=== PATIENT | male | born 1950 | race Caucasian/White ===

== ENCOUNTER 2018-07-26 12:11 | Inpatient (IN) | payer MEDICARE, OTHER ==
[2018-07-26 13:47] LABS: ADD MAN DIFF? NO
[2018-07-26 13:56] LABS: BASOPHIL # 0.1 10^3/ul (0.0-0.1); BASOPHILS % 0.6 % (0.0-2.0); EOSINOPHILS # 0.2 10^3/ul (0.0-0.5); EOSINOPHILS % 1.8 % (0.0-7.0); HEMATOCRIT 46.8 % (42.0-52.0); HEMOGLOBIN 15.2 g/dl (14.0-18.0); LYMPHOCYTES # 2.5 10^3/ul (0.8-2.9); LYMPHOCYTES % 20.6 % (15.0-51.0); MEAN CORPUSCULAR HEMOGLOBIN 28.8 pg (29.0-33.0); MEAN CORPUSCULAR HGB CONC 32.5 g/dl (32.0-37.0); MEAN CORPUSCULAR VOLUME 88.8 fl (82.0-101.0); MEAN PLATELET VOLUME 8.9 fl (7.4-10.4); MONOCYTE # 0.9 10^3/ul (0.3-0.9); MONOCYTES % 7.7 % (0.0-11.0); NEUTROPHIL # 8.4 10^3/ul (1.6-7.5); NEUTROPHILS % 68.2 % (39.0-77.0); PLATELET COUNT 330 10^3/UL (140-415); RED BLOOD COUNT 5.27 10^6/ul (4.70-6.10); RED CELL DISTRIBUTION WIDTH 13.5 % (11.5-14.5)
[2018-07-26 13:56] LABS: WHITE BLOOD COUNT 12.3 10^3/ul (4.8-10.8)
[2018-07-26] MEDS ORDERED: ACETAMINOPHEN 325 MG TAB PO (14:00)
[2018-07-26] MEDS ORDERED: ONDANSETRON 4 MG INJ IV (14:00)
[2018-07-26 14:12] LABS: ANION GAP 6 (5-13); BLOOD UREA NITROGEN 15 mg/dl (7-20); CALCIUM 9.4 mg/dl (8.4-10.2); CARBON DIOXIDE 34 mmol/L (21-31); CHLORIDE 97 mmol/L (97-110); CREATININE 0.71 mg/dl (0.61-1.24); Estimated GFR > 60 mL/min (>60); GLUCOSE 196 mg/dl (70-220); POTASSIUM 4.3 mmol/L (3.5-5.1); SODIUM 137 mmol/L (135-144)
[2018-07-26] MEDS: PIPER-TAZO 3.375 GM IV (PMX) 100 ML IVPB (14:17)
[2018-07-26 14:24] LABS: TROPONIN-I < 0.012 ng/ml (0.000-0.120)
[2018-07-26] MEDS: VANCOMYCIN 1 GM (PMX) 250 ML IVPB (14:39)
[2018-07-26] MEDS ORDERED: ACETAMINOPHEN 500 MG TAB PO (20:00)
[2018-07-26] MEDS: ACCU-CHEK XX (20:00)
[2018-07-26] MEDS: NICOTINE (14 MG/24 HR) PATCH TRANSDERM (20:30)
[2018-07-26] MEDS: ALBUTEROL HFA 8 GM INHALER INH (21:00)
[2018-07-26] MEDS ORDERED: GLUCOSE GEL 15 GRAM TUBE BUCCAL (21:30)
[2018-07-26] MEDS ORDERED: GLUCOSE GEL 15 GRAM TUBE PO ×2 (21:30)
[2018-07-26] MEDS ORDERED: DEXTROSE 50% 50 ML SYRINGE IV ×2 (21:30)
[2018-07-26] MEDS ORDERED: GLUCAGON 1 MG INJ IM (21:30)
[2018-07-26] MEDS: INSULIN ASPART [NOVOLOG] 3 ML PEN SC (22:03)
[2018-07-26] MEDS: BUMETANIDE 1 MG TAB PO (22:04)
[2018-07-26] MEDS: SPIRONOLACTONE 50 MG TAB PO (22:04)
[2018-07-26] MEDS: MONTELUKAST 10 MG TAB GTB (22:06)
[2018-07-26] MEDS: AMITRIPTYLINE 10 MG TAB PO (22:07)
[2018-07-26] MEDS: DOCUSATE SODIUM 250 MG CAP PO (22:07)
[2018-07-26] MEDS: ATORVASTATIN 40 MG TAB PO (22:07)
[2018-07-26] MEDS: DIPHENHYDRAMINE 25 MG CAP PO (22:08)
[2018-07-27] MEDS: PIPER-TAZO 3.375 GM IV (PMX) 100 ML IVPB ×4 (00:36→21:44)
[2018-07-27] MEDS: ALBUTEROL HFA 8 GM INHALER INH ×5 (01:00→17:12)
[2018-07-27] MEDS: INSULIN GLARGINE [LANTus] (100 UNITS/ML) SYG SC (01:10)
[2018-07-27] MEDS: Insulin NOVOLOG SS MODERATE Algorithm(NPO/TPN/ENTERAL FEEDS) SC ×4 (01:16→19:48)
[2018-07-27 01:25] LABS: LACTIC ACID 1.1 mmol/L (0.5-2.0)
[2018-07-27] MEDS ORDERED: INSULIN ASPART [NOVOLOG] 3 ML PEN SC ×3 (01:30→08:00)
[2018-07-27] MEDS ORDERED: ACCU-CHEK XX (02:00)
[2018-07-27 03:49] LABS: LACTIC ACID 1.3 mmol/L (0.5-2.0)
[2018-07-27] MEDS: ACCU-CHEK XX ×4 (06:00→17:11)
[2018-07-27] MEDS ORDERED: PIPER-TAZO 3.375 GM IV (PMX) 100 ML IVPB (06:00)
[2018-07-27 07:13] LABS: LACTIC ACID 1.2 mmol/L (0.5-2.0)
[2018-07-27] MEDS: DOCUSATE SODIUM 250 MG CAP PO ×2 (08:39→21:43)
[2018-07-27] MEDS: TIOTROPIUM 18 MCG CAPSULE INHA DEV INH (08:39)
[2018-07-27] MEDS: AMLODIPINE 10 MG TAB PO (08:42)
[2018-07-27] MEDS: BUPROPION (XL) 150 MG TAB PO (08:42)
[2018-07-27] MEDS: ASPIRIN (EC) 81 MG TAB PO (08:43)
[2018-07-27] MEDS: PREGABALIN 75 MG CAP PO (08:43)
[2018-07-27] MEDS: LINAGLIPTIN 5 MG TABLET PO ×2 (08:43→17:10)
[2018-07-27] MEDS: GLIMEPIRIDE 2 MG TAB GTB (08:43)
[2018-07-27] MEDS: SPIRONOLACTONE 50 MG TAB PO (08:44)
[2018-07-27] MEDS: BENAZEPRIL 20 MG TAB PO (08:44)
[2018-07-27] MEDS: metFORMIN 500 MG TAB PO ×2 (08:44→17:09)
[2018-07-27] MEDS: VANCOMYCIN 1 GM (PMX) 250 ML IVPB (08:46)
[2018-07-27] MEDS: NICOTINE (14 MG/24 HR) PATCH TRANSDERM (08:49)
[2018-07-27] MEDS ORDERED: SPECIAL NON-STANDARD MEDICATION PO (09:00)
[2018-07-27] MEDS: FISH OIL 1,000 MG CAP PO ×2 (17:10→21:43)
[2018-07-27] MEDS: MONTELUKAST 10 MG TAB GTB (21:43)
[2018-07-27] MEDS: ATORVASTATIN 40 MG TAB PO (21:43)
[2018-07-27] MEDS: AMITRIPTYLINE 10 MG TAB PO (21:43)
[2018-07-28] MEDS: ALBUTEROL HFA 8 GM INHALER INH ×4 (01:00→21:00)
[2018-07-28] MEDS: PIPER-TAZO 3.375 GM IV (PMX) 100 ML IVPB ×3 (06:36→21:19)
[2018-07-28 06:44] LABS: BLOOD UREA NITROGEN 21 mg/dl (7-20)
[2018-07-28] MEDS: GLIMEPIRIDE 2 MG TAB GTB (06:44)
[2018-07-28] MEDS: DOCUSATE SODIUM 250 MG CAP PO ×2 (08:33→20:08)
[2018-07-28] MEDS: ASPIRIN (EC) 81 MG TAB PO (08:33)
[2018-07-28] MEDS: BUPROPION (XL) 150 MG TAB PO (08:33)
[2018-07-28] MEDS: AMLODIPINE 10 MG TAB PO (08:33)
[2018-07-28] MEDS: FISH OIL 1,000 MG CAP PO ×2 (08:33→20:08)
[2018-07-28] MEDS: LINAGLIPTIN 5 MG TABLET PO ×2 (08:34→17:19)
[2018-07-28] MEDS: metFORMIN 500 MG TAB PO ×2 (08:34→17:19)
[2018-07-28] MEDS: BENAZEPRIL 20 MG TAB PO (08:34)
[2018-07-28] MEDS: PREGABALIN 75 MG CAP PO (08:35)
[2018-07-28] MEDS: SPIRONOLACTONE 50 MG TAB PO (08:35)
[2018-07-28] MEDS: TIOTROPIUM 18 MCG CAPSULE INHA DEV INH (08:36)
[2018-07-28] MEDS: NICOTINE (14 MG/24 HR) PATCH TRANSDERM (08:40)
[2018-07-28] MEDS: VANCOMYCIN 1 GM (PMX) 250 ML IVPB (09:14)
[2018-07-28] MEDS: INSULIN ASPART [NOVOLOG] 3 ML PEN SC ×2 (18:28→23:26)
[2018-07-28] MEDS: MONTELUKAST 10 MG TAB GTB (20:08)
[2018-07-28] MEDS: ATORVASTATIN 40 MG TAB PO (20:08)
[2018-07-28] MEDS: AMITRIPTYLINE 10 MG TAB PO (20:08)
[2018-07-28] MEDS: INSULIN GLARGINE [LANTus] (100 UNITS/ML) SYG SC (20:09)
[2018-07-29] MEDS: ALBUTEROL HFA 8 GM INHALER INH ×6 (01:00→20:22)
[2018-07-29] MEDS: ACCU-CHEK XX (01:13)
[2018-07-29] MEDS: INSULIN ASPART [NOVOLOG] 3 ML PEN SC ×3 (05:23→17:19)
[2018-07-29] MEDS: PIPER-TAZO 3.375 GM IV (PMX) 100 ML IVPB ×3 (05:23→22:07)
[2018-07-29] MEDS: DOCUSATE SODIUM 250 MG CAP PO ×2 (08:07→20:05)
[2018-07-29] MEDS: metFORMIN 500 MG TAB PO ×2 (08:07→17:17)
[2018-07-29] MEDS: FISH OIL 1,000 MG CAP PO ×2 (08:08→20:06)
[2018-07-29] MEDS: LINAGLIPTIN 5 MG TABLET PO ×2 (08:08→17:17)
[2018-07-29] MEDS: SPIRONOLACTONE 50 MG TAB PO (08:09)
[2018-07-29] MEDS: GLIMEPIRIDE 2 MG TAB GTB (08:09)
[2018-07-29] MEDS: BUPROPION (XL) 150 MG TAB PO (08:09)
[2018-07-29] MEDS: PREGABALIN 75 MG CAP PO (08:09)
[2018-07-29] MEDS: AMLODIPINE 10 MG TAB PO (08:10)
[2018-07-29] MEDS: BENAZEPRIL 20 MG TAB PO (08:10)
[2018-07-29] MEDS: ASPIRIN (EC) 81 MG TAB PO (08:11)
[2018-07-29] MEDS: TIOTROPIUM 18 MCG CAPSULE INHA DEV INH (08:14)
[2018-07-29] MEDS: NICOTINE (14 MG/24 HR) PATCH TRANSDERM (08:14)
[2018-07-29] MEDS: VANCOMYCIN 1 GM (PMX) 250 ML IVPB (09:03)
[2018-07-29 17:14] LABS: HIV 1&2 ANTIBODY NEGATIVE (NEGATIVE)
[2018-07-29] MEDS: MONTELUKAST 10 MG TAB GTB (20:05)
[2018-07-29] MEDS: ATORVASTATIN 40 MG TAB PO (20:05)
[2018-07-29] MEDS: AMITRIPTYLINE 10 MG TAB PO (20:06)
[2018-07-29] MEDS: INSULIN GLARGINE [LANTus] (100 UNITS/ML) SYG SC ×2 (20:20→21:00)
[2018-07-29] MEDS: Insulin NOVOLOG SS MODERATE Algorithm (SS with meals and bedtime) SC ×2 (20:21→20:57)
[2018-07-30] MEDS: ALBUTEROL HFA 8 GM INHALER INH ×5 (01:00→17:00)
[2018-07-30] MEDS ORDERED: ACCUCHECK AT 2AM (Patients on SS coverage) XX (02:00)
[2018-07-30] MEDS: PIPER-TAZO 3.375 GM IV (PMX) 100 ML IVPB ×2 (05:51→14:00)
[2018-07-30] MEDS: Insulin NOVOLOG SS MODERATE Algorithm (SS with meals and bedtime) SC ×3 (08:00→18:00)
[2018-07-30] MEDS: BUPROPION (XL) 150 MG TAB PO (08:32)
[2018-07-30] MEDS: metFORMIN 500 MG TAB PO ×2 (08:32→18:00)
[2018-07-30] MEDS: BENAZEPRIL 20 MG TAB PO (08:33)
[2018-07-30] MEDS: DOCUSATE SODIUM 250 MG CAP PO (08:33)
[2018-07-30] MEDS: FISH OIL 1,000 MG CAP PO (08:33)
[2018-07-30] MEDS: PREGABALIN 75 MG CAP PO (08:33)
[2018-07-30] MEDS: ASPIRIN (EC) 81 MG TAB PO (08:33)
[2018-07-30] MEDS: SPIRONOLACTONE 50 MG TAB PO (08:34)
[2018-07-30] MEDS: GLIMEPIRIDE 2 MG TAB GTB (08:34)
[2018-07-30] MEDS: LINAGLIPTIN 5 MG TABLET PO ×2 (08:34→18:00)
[2018-07-30] MEDS: AMLODIPINE 10 MG TAB PO (08:34)
[2018-07-30 08:39] LABS: ADD MAN DIFF? NO
[2018-07-30] MEDS: TIOTROPIUM 18 MCG CAPSULE INHA DEV INH (08:40)
[2018-07-30] MEDS: NICOTINE (14 MG/24 HR) PATCH TRANSDERM (08:40)
[2018-07-30 08:43] LABS: BASOPHIL # 0.1 10^3/ul (0.0-0.1); BASOPHILS % 0.5 % (0.0-2.0); EOSINOPHILS # 0.3 10^3/ul (0.0-0.5); EOSINOPHILS % 2.6 % (0.0-7.0); HEMATOCRIT 46.8 % (42.0-52.0); HEMOGLOBIN 14.6 g/dl (14.0-18.0); LYMPHOCYTES # 2.3 10^3/ul (0.8-2.9); LYMPHOCYTES % 19.2 % (15.0-51.0); MEAN CORPUSCULAR HEMOGLOBIN 28.3 pg (29.0-33.0); MEAN CORPUSCULAR HGB CONC 31.2 g/dl (32.0-37.0); MEAN CORPUSCULAR VOLUME 90.9 fl (82.0-101.0); MEAN PLATELET VOLUME 8.5 fl (7.4-10.4); MONOCYTES % 8.2 % (0.0-11.0); NEUTROPHIL # 8.4 10^3/ul (1.6-7.5); NEUTROPHILS % 68.4 % (39.0-77.0); PLATELET COUNT 346 10^3/UL (140-415); RED BLOOD COUNT 5.15 10^6/ul (4.70-6.10); RED CELL DISTRIBUTION WIDTH 13.2 % (11.5-14.5)
[2018-07-30 08:43] LABS: WHITE BLOOD COUNT 12.2 10^3/ul (4.8-10.8)
[2018-07-30 09:09] LABS: ALANINE AMINOTRANSFERASE 25 IU/L (13-69); ALBUMIN 3.8 g/dl (3.3-4.9); ALKALINE PHOSPHATASE 77 IU/L (42-121); ANION GAP 7 (5-13); ASPARTATE AMINO TRANSFERASE 32 IU/L (15-46); BILIRUBIN,INDIRECT 0.5 mg/dl (0-1.1); BILIRUBIN,TOTAL 0.5 mg/dl (0.2-1.3); BLOOD UREA NITROGEN 18 mg/dl (7-20); CARBON DIOXIDE 34 mmol/L (21-31); CHLORIDE 96 mmol/L (97-110); CREATININE 0.82 mg/dl (0.61-1.24); Estimated GFR > 60 mL/min (>60); GLUCOSE 152 mg/dl (70-220); POTASSIUM 5.1 mmol/L (3.5-5.1); SODIUM 137 mmol/L (135-144); TOTAL PROTEIN 7.6 g/dl (6.1-8.1)
[2018-07-30 09:43] LABS: VANCOMYCIN,TROUGH < 5.0 ug/ml (10.0-20.0)
[2018-07-30] MEDS: VANCOMYCIN 1 GM (PMX) 250 ML IVPB ×2 (09:46→16:07)
[2018-07-30] MEDS ORDERED: VANCOMYCIN 1 GM (PMX) 250 ML IVPB ×3 (21:00)
== END 2018-07-30 18:20 | disposition home health service (06) | DRG 603 ==
LOC: 5EC 15:36 → E/R 12:11 → 5EC 13:49
DX: L03.115 Cellulitis of right lower limb (principal); I50.40 Unspecified combined systolic (congestive) and diastolic (congestive) heart failure; I11.0 Hypertensive heart disease with heart failure; E66.9 Obesity, unspecified; Z68.31 Body mass index [BMI] 31.0-31.9, adult; I25.119 Atherosclerotic heart disease of native coronary artery with unspecified angina pectoris; E11.65 Type 2 diabetes mellitus with hyperglycemia; E78.5 Hyperlipidemia, unspecified; J44.9 Chronic obstructive pulmonary disease, unspecified; N40.0 Benign prostatic hyperplasia without lower urinary tract symptoms; F17.210 Nicotine dependence, cigarettes, uncomplicated; R09.02 Hypoxemia; R06.81 Apnea, not elsewhere classified; R41.3 Other amnesia; Z79.82 Long term (current) use of aspirin; Z79.84 Long term (current) use of oral hypoglycemic drugs
CPT/HCPCS: 36415; 71045; 73721; 80048; 80053; 80202; 82565; 82962; 83605; 84484; 84520; 85025; 86703; 87040-91; 87081; 93306; 93971; 99285-25